=== PATIENT | male | born 1970 | race Caucasian/White ===

== ENCOUNTER 2021-06-12 17:43 | Emergency (ER) | payer OTHER ==
[2021-06-12] MEDS ORDERED: LODINE CAP 300300 MG PO (18:49)
[2021-06-12] MEDS ORDERED: VENTOLIN HFA 66.7 GM INH (18:49)
== END 2021-06-12 21:15 | disposition home or self-care (01) ==
LOC: ER1 17:43
DX: U07.1 COVID-19 (principal); Z88.2 Allergy status to sulfonamides
CPT/HCPCS: 99283

== ENCOUNTER → 2021-12-09 | Outpatient (CLI) | payer OTHER ==
[~2021-12-09] MED LIST: LODINE CAP 300300 MG PO; VENTOLIN HFA 66.7 GM INH
== END ==
LOC: KOH-I 10:47
DX: R22.0 Localized swelling, mass and lump, head (principal); M25.552 Pain in left hip; M16.11 Unilateral primary osteoarthritis, right hip
CPT/HCPCS: 70250; 73502

== ENCOUNTER → 2022-01-02 | Outpatient (CLI) | payer OTHER | LOC: KOH-I 10:45 | DX: Z87.891 Personal history of nicotine dependence (principal); R91.8 Other nonspecific abnormal finding of lung field | CPT/HCPCS: 71271 ==

== ENCOUNTER 2022-03-09 13:03 | Emergency (ER) | payer OTHER | END 2022-03-09 15:54 | disposition home or self-care (01) | LOC: ER1 13:03 | DX: S81.811A Laceration without foreign body, right lower leg, initial encounter (principal); Z88.2 Allergy status to sulfonamides; W26.8XXA Contact with other sharp object(s), not elsewhere classified, initial encounter; Y92.009 Unspecified place in unspecified non-institutional (private) residence as the place of occurrence of the external cause | CPT/HCPCS: 12001; 99282 ==